=== PATIENT | female | born 1980 | race American Indian/Alaskan Native ===

== ENCOUNTER 2019-01-14 13:03 | Inpatient (IN) | payer BC, OTHER ==
[2019-01-14 13:59] VITALS: BMI 31.4
[2019-01-14] MEDS ORDERED: Lactated Ringer's 1,000 ML IV ONE (13:59)
[2019-01-14] MEDS ORDERED: Lactated Ringer's 1,000 ML IV SCH (14:00)
[2019-01-14] MEDS ORDERED: Phenylephrine 10 mg/ml Inj ONE (14:18)
[2019-01-14 14:43] LABS: BASO % 0.2 % (0.0-2.0); EOS # 0.1 K/uL (0.0-0.7); EOS % 0.9 % (0.0-4.0); HEMOGLOBIN 12.5 g/dL (11.0-16.0); LYMPH # 2.1 K/uL (1.0-4.3); LYMPH % 34.7 % (20.0-40.0); MEAN CELL VOLUME 93.1 fL (81.0-99.0); MEAN CORPUSCULAR HEMOGLOBIN 32.7 pg (27.0-31.0); MEAN CORPUSCULAR HGB CONC 35.1 g/dL (33.0-37.0); MONO # 0.6 K/uL (0.0-0.8); MONO % 10.1 % (0.0-10.0); NEUT # 3.2 K/uL (1.8-7.0); NEUT % 54.1 % (50.0-75.0); NRBC % 0.1 % (0.0-2.0); RBC 3.83 Mil/uL (3.80-5.20); RED CELL DISTRIBUTION WIDTH 14.1 % (11.5-14.5); WHITE BLOOD COUNT 5.9 K/uL (4.8-10.8)
[2019-01-14 14:49] LABS: SQUAMOUS EPITHIAL 2 /hpf (0-5); URINE BACTERIA MANY (<OCC); URINE BILIRUBIN NEGATIVE (NEGATIVE); URINE BLOOD NEGATIVE (NEGATIVE); URINE CLARITY Hazy (Clear); URINE COLOR Yellow (YELLOW); URINE GLUCOSE (UA) NORMAL (Normal); URINE LEUKOCYTE ESTERASE 2+ Leu/uL (Negative); URINE PROTEIN NEGATIVE (NEGATIVE); URINE UROBILINOGEN NORMAL mg/dL (0.2-1.0)
[2019-01-14 14:55] LABS: ALB/GLOB RATIO 1.2 (1.0-2.1); ALBUMIN 3.9 g/dL (3.5-5.0); ALT/SGPT 12 U/L (9-52); AST/SGOT 21 U/L (14-36); BLOOD UREA NITROGEN 3 mg/dL (7-17); CALCIUM 9.5 mg/dl (8.6-10.4); GFR NON-AFRICAN AMERICAN > 60
[2019-01-14 15:00] LABS: BARBITURATES, UR NEGATIVE (NEGATIVE); BENZODIAZEPINES, UR NEGATIVE (NEGATIVE); OPIATES, UR NEGATIVE (NEGATIVE); PHENCYCLIDINE, UR NEGATIVE (NEGATIVE)
[2019-01-14] MEDS ORDERED: Sodium Citrate/Citric Acid 15 ml Sol PO ONE (15:00)
--- NOTE | 2019-01-14 15:22 | OBHP ---
Datetime: 01/14/2019 13:47 IP Adm Impression: Term, intrauterine ; No Active Labor; Intact Membranes IP Chief Complaint Other: Prev C/S; AMA; leiomyomatous uteri IP Admit Plan: Admit to unit; Initiate Section protocol Admit Comment, IP Provider: This is a private patient of Dr. Chavez 38 y.o. , LMP 04/22/18, LINO 01/28/19, EGA 38w 1d reports leakeage of clear fluid since approx 0830 hours 01/13/19 - this occurred a few more times during the day. Also reports crampy abdominal pa in associated with tightening of the abdomen "all day". Pain scale throughout the day 7/10 to 8/10; w ith same pain scale upon presentation today. (+) AFM; denies VB care: Dr. Chavez. Noted for Prev C/S; AMA; leiomyoma P Ob: 09/25/2003, C/S, female, 6+lb, [facility] "she wasn't positioned well" Denies labor. No comp lications. 2 other pregnancies: Spont ab x 2:2003, secondary to D_C "because I had cysts on my ovari es"; (?) 2005, "chemical" - doesn't recall what was done P PHYSICIANS AND SURGEONS: 11 x monthly x 5. Denies h/o STIs, or abnormal Pap. h/o ovarian cysts. Diagnosed leiomyoma beginning of this . PMH: denies PSH: C/S. "several" D_Cs - "because of the cysts" NKDA Meds: PNV - QD Soc Hx: denies tobacco, illicit drug or EtOH use. Lives with her mopther and daughter. FOB not inv olved x 9 months. 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 no med issues. Father laive 65 y.o. - prostate CA. MGM - h/o skin cancer. P.E.: as above. WD in moderate discomfort with each contractions. Awake, alert, oriented to time, person and place. Pleasant and cooperative. Accompanied by her mother. Assessment: 38 y.o. P1021, 38w 1d, no evidence of PROM. Prev C/S with uterine contractions. In thi s setting, private Ob provider has made the decision to proceed with repeat C/S at this time. This pérez s been D/W the patient, who epxressed an understaindng and agrees. Category 1 tracing. Patient last a te 1000 hours: peanut butter jelly sandwich with plantains, and a cup of tea. Patient is clinically s table. Dr. Chavez to obtain surgical consent. Plan: 1) Admit 2) NPO 3) Admission labs 4) Continuous EFM 5) Abdominal prep and shave 6) Mariscal 7) Mefoxin, acquisition associate to O.R. 8) Notify anesthesia 9) Notify peds 10) Patient acquisition associate to O.R. - as per and D/W Dr. Chavez Pelvic Type - PN: Adequate Extremities - PN: Normal Abdomen - PN: Normal Back - PN: Normal Breast - PN: Not Done Lungs - PN: Normal Heart - PN: Normal Thyroid - PN: Not Done Neurologic - PN: Normal HEENT - PN: Normal General - PN: Normal Presentation-Admit: Vertex FHR - Baseline A Provider: 140 Contraction Comments Provider: 5-6 Comments, ACOG Physical Exam: Abdomen: Gravid. Soft. Non tender in all quadrants. Healed Pfannenstie l scar; mild keloid Fundal height 39cm Perineum: dry Sterile spec exam: no pooling; no bleeding. nitrazine (-) Limited bedsid sono: cephalic; anterior placenta. LUDY 14.61 cm (MVP 5.23 cm). (+)FBM; (+) FM; (+) tone; (+) cardiac activity All other systems reviewed and are negative Gestation - Est Wks by US: 38w 1d IP Hx Assessment: The History has been Reviewed and is Current EGA AdmitDate IP: 38.1 Vital Signs Provider: Reviewed IP Indication for Induction: Not Applicable IP Chief Complaint: Uterine contractions; Suspected ruptured membranes NICHD Variability Prov Fetus A: Moderate 6-25bpm NICHD Accel Fetus A IP Provider: [id number] FHR Category Provider Fetus A: Category I NICHD Decel Fetus A IP Provider: None Dilatation, Provider: 0 Effacement, Provider: 30 Station, Provider: -3 Genitourinary Exam: Normal DTRs - PN: Not Done
[2019-01-14] MEDS ORDERED: Sodium Citrate/Citric Acid 15 ml Sol ONE (15:26)
[2019-01-14] MEDS ORDERED: cefOXitin IV 2 gm in Dextrose 2 GM/50 ML BAG IVPB ONE (15:27)
[2019-01-14] MEDS ORDERED: Morphine 1 mg/ml preservative-free Inj(Duramorph) ONE (15:42)
[2019-01-14] MEDS ORDERED: Oxytocin 20 units in LR 2,000 ML IV ONE (15:43)
[2019-01-14] MEDS ORDERED: Oxytocin 10 Units/ml Inj ONE (15:45)
[2019-01-14] MEDS: cefOXitin IV 2 gm in Dextrose 2 GM/50 ML BAG IVPB SCH ×2 (15:55→23:14)
[2019-01-14] MEDS ORDERED: Midazolam 2 MG/2 ML VIAL ONE (16:32)
[2019-01-14] MEDS ORDERED: HYDROmorphone 0.5 mg/0.5 ml ISec IVP PRN (17:18)
[2019-01-15] MEDS: Lactated Ringer's 1,000 ML IV SCH ×2 (02:00→11:30)
--- NOTE | 2019-01-15 02:09 | HP ---
HISTORY OF PRESENT ILLNESS: The patient is a 38-year-old female, 2, para 1 with a due date of 01/26/2019, at 38 weeks 5 days, previous section x1, has been complaining of contractions for the last 12 hours. Denies any vaginal bleeding. The patient thought she was leaking fluid. test was negative; however, she was noted to have contractions every five minutes with an intensity of 7/10. PAST OBSTETRICAL HISTORY: Significant for section x1 for failure to progress. PAST MEDICAL HISTORY: Unremarkable. SOCIAL HISTORY: She does not smoke or drink. MEDICATIONS: Currently, she is not taking any calcium or airborne medications. LABORATORY DATA: Group B streptococcus is negative. PHYSICAL EXAMINATION: VITAL SIGNS: Blood pressure is 110/70, pulse is 72, respiratory rate is 20, temperature is 98.8. HEAD, EARS, NOSE AND THROAT: Within normal. CHEST: Clear. CARDIAC: Reveals normal heart sounds without any murmurs. LUNGS: Clear. BREASTS: Reveal no masses. ABDOMEN: Soft. Symphyseal fundal height is 38 cm, longitudinal lie, vertex. heart tones are normal. PELVIC: She has a normal vulva. Bartholin, urethra and [place]'s glands are within normal. Cervix is 2 cm, 50% effaced, -2 station. ADMITTING DIAGNOSES: Intrauterine at 38 weeks. Previous section x1. In early labor. PLAN: To perform a lower segment section. Prior to being scheduled for this surgical procedure, the patient underwent an informed consent, discussion, and education session with me in the hospital lasting approximately 45 minutes during which time I explained to her in understandable terms the following. The nature and extent of her disease process, the nature and extent of the contemplated operation. I also explained to her the risks and potential complications of the operative procedures to include postoperative management including but not limited to infection, hemorrhage, deep vein thrombosis, atelectasis, pneumonia, pulmonary embolism, damage to the bladder, damage to the ureter, renal insufficiency, renal failure, wound infection, wound dehiscence, incisional hernia, keloid formation, damage to large and small intestines, damage to the inferior vena cava and aorta requiring extensive repair, anesthesia complications, electrolyte imbalance, possibility of , fluid overload, cerebral edema, embolism, and other complications that were discussed but are not listed above. I also discussed with the patient the anticipated benefits and results of the surgery including a conservative estimate of the successful outcome. I discussed with the patient what the operation would and would not accomplish. I informed the patient of the possibility of unanticipated pathology requiring a more extensive procedure. All the questions from the patient were encouraged, welcomed, and answered to her satisfaction. The patient was given the opportunity to store her own blood for use and autologous blood transfusion prenatally and she had declined. Bee Nava MD
--- NOTE | 2019-01-15 02:13 | OP ---
PROCEDURE DATE: 01/14/2019 PREOPERATIVE DIAGNOSIS: Intrauterine at 38 weeks, in labor, previous section x1. POSTOPERATIVE DIAGNOSIS: Intrauterine at 38 weeks, in labor, previous section x1. PROCEDURE: Lower-segment section. FINDINGS: Live male , Apgars 9 at 1 minute and 9 at 5 minutes with normal tubes and with extensive multi-fibroid uterus and a large 4-cm anterior submucosal myoma. SURGEON: Bee Nava MD ASSOCIATE MEDIA DIRECTOR: Dr. Vasquez. ANESTHESIA: Spinal. ESTIMATED BLOOD LOSS: 250 mL. COMPLICATIONS: Nil. INDICATIONS: After the risks, benefits, and alternatives of the planned procedure including but not limited to infection, hemorrhage, deep vein thrombosis, atelectasis, pneumonia, pulmonary embolism, damage to the bladder, damage to the ureter, renal insufficiency, renal failure, wound infection, wound dehiscence, incisional hernia, keloid formation, damage to large and small intestines, damage to inferior vena cava and aorta requiring extensive repair, anesthesia complications, electrolyte imbalance, possibility of , fluid overload, cerebral edema, embolism, and other complications that were discussed but are not listed above had been explained to the patient and all her questions answered. Informed consent was obtained. DESCRIPTION OF PROCEDURE: The patient was taken to the operating room in a stable condition. Under suitable level of spinal analgesia, she was prepped and draped in a sterile fashion after having been placed in a supine position. The abdomen was entered through a Pfannenstiel-type incision, carried through the subcutaneous tissues to the fascia. Fascia was opened transversely and dissected off the rectus abdominis musculature. The rectus abdominis musculature was then in the midline to remove the parietal peritoneum, which was entered sharply and incised superiorly and inferiorly. The bladder peritoneum was then incised in a curvilinear fashion and dissected off the lower uterine segment. The lower uterine segment was then entered through a curvilinear incision. The surgeon's fingers were inserted into the lower uterine segment to grasp the infant's head, which was lying in a right occipital anterior position. Head was easily delivered. Nose and mouth were suctioned free of amniotic fluid and the remainder of the infant was delivered without any difficulty. Cord was doubly clamped and cut, and the baby was handed over to the pediatricians who were in attendance. Cord blood was collected with Pitocin running. Placenta was manually removed. The endometrium was then cleaned free of remaining membranes and clots. The uterine incision was then closed in layers with the first layer being a running interlocking layer using #1 chromic and the second layer being used to imbricate the first layer. Hemostasis was good. Bladder peritoneum was then reapproximated using a running suture of 2-0 chromic. Peritoneal cavity was irrigated using copious amounts of saline. The saline was evacuated. The abdomen was then closed in layers with 0 chromic to the parietal peritoneum. Rectal muscles were reapproximated using interrupted sutures of 0 chromic. Fascia was reapproximated using two separate running sutures of 0 Vicryl to meet in the midline. Subcutaneous tissues were reapproximated using interrupted sutures of 0 plain and the initial skin incision was reapproximated using 4-0 Vicryl in a subcuticular fashion. Estimated blood loss for the procedure was 250 mL. Pad, needle, and instrument counts were correct x2. There were no complications. Bee Nava MD
[2019-01-15] MEDS: cefOXitin IV 2 gm in Dextrose 2 GM/50 ML BAG IVPB SCH (07:00)
[2019-01-15 07:54] LABS: MEAN CELL VOLUME 94.2 fL (81.0-99.0); MEAN CORPUSCULAR HEMOGLOBIN 33.3 pg (27.0-31.0); MEAN CORPUSCULAR HGB CONC 35.4 g/dL (33.0-37.0); MEAN PLATELET VOLUME 12.2 fL (7.2-11.7); RBC 2.9 Mil/uL (3.80-5.20); RED CELL DISTRIBUTION WIDTH 14.1 % (11.5-14.5)
[2019-01-15 08:10] LABS: HEMOGLOBIN 9.7 g/dL (11.0-16.0)
[2019-01-15 08:11] LABS: WHITE BLOOD COUNT 9.7 K/uL (4.8-10.8)
[2019-01-15] MEDS: Oxycodone/Acetaminophen 5/325 mg Tab PO PRN ×3 (08:17→19:50)
[2019-01-15] MEDS: Prenatal Multivit/Folic Acid/Iron Tab PO SCH (09:49)
[2019-01-15] MEDS: Enoxaparin 40 mg Syringe SC SCH (09:49)
[2019-01-16] MEDS: Prenatal Multivit/Folic Acid/Iron Tab PO SCH (09:31)
[2019-01-16] MEDS: Enoxaparin 40 mg Syringe SC SCH (09:31)
[2019-01-16 11:40] LABS: BASO % 0.1 % (0.0-2.0); EOS % 0.3 % (0.0-4.0); HEMOGLOBIN 8.8 g/dL (11.0-16.0); LYMPH # 1.1 K/uL (1.0-4.3); LYMPH % 9.8 % (20.0-40.0); MEAN CELL VOLUME 94.9 fL (81.0-99.0); MEAN CORPUSCULAR HEMOGLOBIN 32.9 pg (27.0-31.0); MEAN CORPUSCULAR HGB CONC 34.6 g/dL (33.0-37.0); MEAN PLATELET VOLUME 11.7 fL (7.2-11.7); MONO # 0.9 K/uL (0.0-0.8); MONO % 8.4 % (0.0-10.0); NEUT % 81.4 % (50.0-75.0); PLATELET COUNT 86 K/uL (130-400); RBC 2.69 Mil/uL (3.80-5.20); RED CELL DISTRIBUTION WIDTH 14.6 % (11.5-14.5)
[2019-01-16] MEDS: Oxycodone/Acetaminophen 5/325 mg Tab PO PRN (12:27)
[2019-01-16 13:06] LABS: BANDS 3 % (0-2); EOSINOPHIL 1 % (0-4); LYMPHOCYTE 8 % (20-40); MONOCYTE 7 % (0-10); NEUTROPHIL 81 % (50-75); PLATELET ESTIMATE DECREASED (NORMAL); TOTAL CELLS COUNTED 100
[2019-01-16 13:07] LABS: HYPOCHROMIC SLIGHT; LARGE PLATELETS PRESENT
[2019-01-16 13:38] LABS: PLATELET COUNT MANUAL 89 K/uL (130-400)
[2019-01-16] MEDS ORDERED: Mineral Oil Enema 135 ml PR ONE (21:00)
--- NOTE | 2019-01-17 07:51 | PN ---
DATE: 01/16/2019 SUBJECTIVE: The patient has no complaints. OBJECTIVE: VITAL SIGNS: Stable. She is afebrile. EXTREMITIES: Nontender with no evidence of deep vein thrombosis. CHEST: Clear. CARDIAC: Reveals normal heart sounds without any murmurs. LUNGS: Clear. BREASTS: Reveal no masses. ABDOMEN: Incision is clean and intact. Bowel sounds are normal. ASSESSMENT: The patient is status post section day #2. PLAN: To continue ambulation and advance diet as tolerated. Bee Nava MD
[2019-01-17] MEDS: Enoxaparin 40 mg Syringe SC SCH (09:13)
[2019-01-17] MEDS: Prenatal Multivit/Folic Acid/Iron Tab PO SCH (09:14)
[2019-01-17 09:15] VITALS: BP 97/65; PULSE 85; RESP 18; TEMP 97.6; O2SAT 99
== END 2019-01-17 13:00 | disposition home or self-care (01) | DRG 788 ==
LOC: C.EROB 13:03 → C.4D 13:54 → C.4M 20:18
PROVIDERS: ADMIT Obstetrics & Gynecology Reproductive Endocrinology; ATTEND Obstetrics & Gynecology Reproductive Endocrinology
PROC: 10D00Z1 Extraction of Products of Conception, Low, Open Approach (ICD-10-PCS; principal; 2019-01-14)
DX: O34.13 Maternal care for benign tumor of corpus uteri, third trimester (principal); O34.211 Maternal care for low transverse scar from previous cesarean delivery; D25.0 Submucous leiomyoma of uterus; L91.0 Hypertrophic scar; O75.89 Other specified complications of labor and delivery; Z3A.38 38 weeks gestation of pregnancy; Z37.0 Single live birth